=== PATIENT | female | born 1935 | race Caucasian/White ===

== ENCOUNTER 2024-10-15 03:43 | Emergency (ER) | payer MEDICARE, OTHER, SELFPAY ==
[2024-10-15 03:45] VITALS: BP 168/84; BMI 26.8
[2024-10-15 04:00] VITALS: BP 148/68
--- NOTE | 2024-10-15 04:25 | ED.GENMED ---
History of Present Illness
General
Chief Complaint: Fall
Source: patient and ambulance crew
Exam Limitations: none
Time Seen by Provider: 10/15/24 03:47
Nursing documentation reviewed up to this point in time: agreed with
History of Present Illness
History of Present Illness:
This a pleasant 89-year-old female presents to the emergency department with headache and diffuse neck pain after a fall. She got up to use the bathroom, without her walker she stumbled on a rug falling and hitting her head. She denies loss of
consciousness. She called 911 after getting herself up because she is on Eliquis. Denies fever, chills, nausea or vomiting. States that she has no pain other than the head pain. Denies syncope or dizziness. She lives alone. She admits to not
using her walker like she should have.
Past History
Past History
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
ED Past Surgical History: Cardiac (pcer 06/24/20), Cholecystectomy and Gynecological (hyster)
Social History
Tobacco: Non-smoker
Alcohol: None
Drug: None
Personal:
Living: with family
Employment: Retired
Family History
Family History: Other (Noncontributory)
Review of Systems
Review of Systems
Allergies reviewed?: Yes
All Other Systems: ROS reviewed and negative except as documented in HPI and ROS
Neurological: Reports headache; Denies dizzy, weakness or numbness
Phy Exam
General Physical Exam
General Presentation: well appearing and no apparent distress
General Skin: warm and dry
General Habitus: normal
General Mental: alert
General Hydration: appears well hydrated
ENT Exam
ENT Exam: EOMI, pharynx normal, neck supple and normocephalic
Eye Exam
Eye Exam: PERRL, cornea clear and conjunctiva normal
Cardiovascular Exam
Cardiovascular Exam: regular rate/rhythm, no edema, no murmur and normal peripheral pulses
Pulmonary Exam
Pulmonary Exam: lungs clear, no respiratory distress, no rales, no crackles, no rhonchi, no stridor, no wheezing and no cough
Gastrointestinal Exam
Gastrointestinal Exam: normal bowel sounds, non tender, soft, no organomegaly, no pulsatile mass and non distended
Neurological Exam
Neurological Exam: alert, oriented x3, no motor deficits and speech normal
Musculoskeletal Exam
Musculoskeletal Exam: full ROM and no edema
Skin Exam
Skin Exam: normal color, warm/dry, no rash and no petechia
Psychiatric Exam
Psychiatric Exam: normal mood/affect
Course
Orders/Labs/Results
Orders:
Orders
10/15/24 03:51
CT Head W/o Iv Contrast Urgent
Comment:
Reason For Exam: fall on eliquis
10/15/24 03:52
CT Cervical Spine W/o Iv Contr Urgent
Comment:
Reason For Exam: fall hit head, neck pain.
Vital Signs
Initial and Last Documented VS:
Initial Vital Signs
Temp Pulse Resp BP Pulse Ox
97.7 F 77 16 168/84 97
10/15/24 03:45 10/15/24 03:45 10/15/24 03:45 10/15/24 03:45 10/15/24 03:45
Last Documented Vital Signs
Temp Pulse Resp BP Pulse Ox
97.7 F 77 16 168/84 97
10/15/24 03:45 10/15/24 03:45 10/15/24 03:45 10/15/24 03:45 10/15/24 03:45
*Critical Care Note
Total Time (30-74mins, 75-104mins- exclusive of procedures): Not Applicable
Update Note
Update Note:
CT head and C-spine without IV contrast
IMPRESSION:
CT HEAD: Parietal scalp contusion/hematoma, without underlying calvarial fracture or acute intracranial abnormality. 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
CT CERVICAL SPINE: No acute osseous trauma. Alignment intact. Craniocervical junction normal. Vertebral body heights are preserved. Multilevel degeneration.
Finalized and 4:49 AM EST
ED Attending Note
-
Portions of this chart may have been created with voice recognition software.� Occasional wrong word or��sound alike� substitutions may have occurred due to the inherent limitations of voice recognition software.
Discharge Plan
Departure
Patient Disposition: Home (Routine Discharge)
Date of Disposition: 10/15/24
Time of Disposition: 04:52
Patient with high blood pressure during this ER visit?: Yes
Condition: Good
Discharge Problem:
Head injury, Fall
Instructions: Head Injury in Adults (DC), Preventing falls in adults, BLOOD PRESSURE
Prescriptions:
No Action
multivitamin [One-A-Day Essential] 1 EACH tablet
1 ea PO DAILY
paroxetine HCl 10 MG tablet
10 mg PO DAILY
ascorbic acid (vitamin C) [Vitamin C] 500 MG tablet
500 mg PO DAILY
apixaban [Eliquis] 5 MG tablet
5 mg PO BID
L.acidoph,paracasei,B.animalis 1 EACH capsule
1 ea PO DAILY
calcium carbonate-vitamin D3 [Calcium 600 + D(3)] 1 EACH tablet
1 ea PO BID
metoprolol succinate 25 MG tablet extended release 24 hr
25 mg PO DAILY Qty: 30 5RF
Referrals:
Johnson Meraz MD [Family Provider] -
Activity Restrictions/Additional Instructions:
It was a pleasure meeting you and taking part in your care. We hope for your continued healing and wellness.
Please read discharge instructions in their entirety. However, they are for general education and may not describe your exact diagnosis at discharge. Information on your ER visit and medical conditions were discussed with you along with appropriate
follow up information...
If indicated, please take your medications as instructed and indicated on discharge paperwork.
Please schedule a follow up appointment as directed. Call to schedule an appointment
Please return to the emergency department with ANY change in, persisting, or worsening of symptoms. If any of your symptoms do not improve, or persist, or become more severe within 6-12 hours, please return to the emergency department for further
care.
Please return to the emergency department if you develop a headache, neck pain/stiffness, fever greater than 100.4F, chest pain, shortness of breath, persistent nausea, vomiting, slurred speech, difficulty walking, numbness/tingling, weakness, signs
of infection or any other symptoms that are worrisome to you.
If you have any questions or concerns please do not hesitate to call the Hospital at or E-mail me directly at [email or web address]
Interventions
Interventions:
*Risk Screen - Suicide Last Done: 10/15/24 03:45
*General Assessment Last Done: 10/15/24 03:45
*Neglect/Abuse Screening Last Done: 10/15/24 03:45
*ED COVID-19 Vaccine History Last Done: 10/15/24 03:45
Discharge Date and Time
Print Language: SINHALA
[2024-10-15 06:00] VITALS: BP 141/71
== END 2024-10-15 07:48 | disposition home or self-care (01) ==
LOC: EMR 03:43
PROVIDERS: EMERGENCY PHYSICIAN Student in an Organized Health Care Education/Training Program; FAMILY PHYSICIAN Family Medicine
DX: S09.90XA Unspecified injury of head, initial encounter (principal); S00.03XA Contusion of scalp, initial encounter; W19.XXXA Unspecified fall, initial encounter; I48.91 Unspecified atrial fibrillation; I44.1 Atrioventricular block, second degree; I38 Endocarditis, valve unspecified; Z60.2 Problems related to living alone; Z79.01 Long term (current) use of anticoagulants; Z90.49 Acquired absence of other specified parts of digestive tract
CPT/HCPCS: 99284; 70450; 72125

== ENCOUNTER → 2025-07-02 12:48 | Outpatient (REF) | payer MEDICARE, OTHER, SELFPAY | LOC: HWRAD 12:48 | PROVIDERS: ATTENDING PHYSICIAN Family Medicine | DX: R51.9 Headache, unspecified (principal); R40.4 Transient alteration of awareness | CPT/HCPCS: 70450 ==